=== PATIENT | female | born 1940 ===

== ENCOUNTER 2016-08-04 07:12 | Emergency (ER) | payer MEDICARE, MEDICAID ==
[2016-08-04 07:18] VITALS: BMI 31.4
[2016-08-04 07:20] VITALS: RESP 18; TEMP 97.3
[2016-08-04] MEDS ORDERED: Iohexol 240 (50 ml) ONE (07:54)
--- NOTE | 2016-08-04 08:03 | ED PDOC ---
Arrival/HPI <Josselyn Rubio - Last Filed: 08/04/16 11:35> <Jack Mulligan - Last Filed: 08/04/16 12:54> - General Chief Complaint: Back Pain Time Seen by Provider: 08/04/16 07:21 - History of Present Illness Narrative History of Present Illness (Text): 08/04/16 07:54 76 y/o F w/ PMHx of HTN, PVD, RA, gout presents to the ED c/o L back pain. Pain started 08/02/16 and has been worsening. Pt indicates pain starts around mid/low back and radiates down back of the L leg to toes. Pt admits to chronic back pain but states that this pain is different. Pain improves when lying flat and worsens when standing/walking. When flat, pt reports discomfort in the groin. Pt denies any new/worsening numbness and tingling. Pt had lumbar Xray on as ordered by PMD. Radiology reports severe facet arthropathy @L4-5 and L5- S1. Pt also admits to increased urinary frequency and urgency. Pt denies F/C, N/ V, D/C. (Josselyn Rubio) Past Medical History - Provider Review Nursing Documentation Reviewed: Yes - Infectious Disease Hx of Infectious Diseases: None - Tetanus Immunization Tetanus Immunization: Unknown - Reproductive Menopause: Yes - Cardiac Hx Cardiac Disorders: Yes Hx Hypertension: Yes Hx Peripheral Vascular Disease: Yes (pins and needlees ble) Other/Comment: NEGATIVE STRESS TEST - Pulmonary Hx Respiratory Disorders: No - Neurological Hx Neurological Disorder: No - HEENT Hx HEENT Disorder: Yes (wears glasses) Hx Cataracts: Yes (r and l cataract sx) - Renal Hx Renal Disorder: No - Endocrine/Metabolic Hx Endocrine Disorders: No - Hematological/Oncological Hx Blood Disorders: No - Integumentary Hx Dermatological Disorder: No - Musculoskeletal/Rheumatological Hx Arthritis: Yes (rheumatoid arthritis) Hx Falls: No Hx Gout: Yes (toes) - Gastrointestinal Hx Gastroesophageal Reflux: Yes - Genitourinary/Gynecological Hx Genitourinary Disorders: Yes Hx Urinary Tract Infection: Yes - Psychiatric Hx Anxiety: Yes Hx Bipolar Disorder: No Hx Depression: No Hx Emotional Abuse: No Hx Hallucinations: No Hx Panic Disorder: No Hx Post Traumatic Stress Disorder: No Hx Psychosis: No Hx Physical Abuse: No Hx Schizophrenia: No Hx Sexual Abuse: No Hx Substance Use: No - Surgical History Hx Section: Yes - Anesthesia Hx Anesthesia: No Hx Anesthesia Reactions: No Hx Malignant Hyperthermia: No - Suicidal Assessment Feels Threatened In Home Enviroment: No <Josselyn Rubio - Last Filed: 08/04/16 11:35> Family/Social History - Physician Review Nursing Documentation Reviewed: Yes Family/Social History: No Known Family HX Smoking Status: Never Smoked Hx Alcohol Use: No Hx Substance Use: No Hx Substance Use Treatment: No <Josselyn Rubio - Last Filed: 08/04/16 11:35> Allergies/Home Meds <Josselyn Rubio - Last Filed: 08/04/16 11:35> <aJck Mulligan - Last Filed: 08/04/16 12:54> Allergies/Adverse Reactions: Allergies aspirin Allergy (Verified 08/04/16 07:14) RASH Penicillins Adverse Reaction (Verified 08/04/16 07:15) REDNESS flu vac Allergy (Uncoded 08/04/16 07:15) FATIGUE Home Medications: Home Meds Medication Instructions Recorded Confirmed Atorvastatin Calcium [Lipitor] 10 mg PO DAILY 03/16/12 08/04/16 Nifedipine [Procardia Xl] 90 mg PO DAILY 03/16/12 08/04/16 Allopurinol 300 mg PO DAILY 07/31/14 08/04/16 Furosemide 40 mg PO MWF 07/31/14 08/04/16 Leflunomide [Arava] 20 mg PO DAILY 07/31/14 08/04/16 Omeprazole [Omeprazole] 20 mg PO DAILY 08/04/16 08/04/16 Review of Systems - Physician Review All systems were reviewed & negative as marked: Yes - Review of Systems Constitutional: absent: Fevers Cardiovascular: absent: Chest Pain <Josselyn Rubio - Last Filed: 08/04/16 11:35> Physical Exam Vital Signs Reviewed: Yes Temperature: Afebrile Blood Pressure: Hypertensive Pulse: Tachycardic Respiratory Rate: Normal Appearance: Positive for: Non-Toxic, Uncomfortable Pain Distress: Mild Mental Status: Positive for: Alert and Oriented X 3 - Systems Exam Head: Present: Atraumatic, Normocephalic Pupils: Present: PERRL Extroacular Muscles: Present: EOMI Conjunctiva: Present: Normal Mouth: Present: Moist Mucous Membranes Respiratory/Chest: Present: Clear to Auscultation, Good Air Exchange. No: Respiratory Distress, Accessory Muscle Use Cardiovascular: Present: Regular Rate and Rhythm, Normal S1, S2. No: Murmurs Abdomen: Present: Normal Bowel Sounds. No: Tenderness, Distention, Peritoneal Signs Upper Extremity: Present: Normal Inspection Lower Extremity: Present: Normal Inspection, Other (negative straight-leg test. negative Henry test). No: CALF TENDERNESS Neurological: Present: GCS=15, Speech Normal Skin: Present: Warm, Dry, Normal Color Psychiatric: Present: Alert, Oriented x 3, Normal Affect, Normal Mood <Josselyn Rubio - Last Filed: 08/04/16 11:35> Medical Decision Making - Lab Interpretations I have reviewed the lab results: Yes (Hypokalemia - replaced) - RAD Interpretation Ski Lift Attendant: Radiologist (CT A/P: negative for acute pathology) <Josselyn Rubio - Last Filed: 08/04/16 11:35> - Lab Interpretations I have reviewed the lab results: Yes <Jack Mulligan - Last Filed: 08/04/16 12:54> ED Course and Treatment: 08/04/16 08:05 76 y/o F w/ L back pain - CBC, CMP - Urinalysis - CT A/P r/o nephrolithiasis vs pyelonephritis - Flexeril 10mg - Reassess and dispo 08/04/16 09:08 pt comfortable in bed. 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 Replete Potassium IV and PO Plan to discharge home on Flexeril for sciatica. (Josselyn Rubio) Patient seen and examined with resident. Came up with treatment and disposition plan with resident. The patient is a 76 year old female who comes to the emergency department for evaluation of acute of chronic left mid to lower back pain radiating down the left lower extremity and toes. Additional HPI details as noted by the resident. On physical examination that has no tenderness to the back our lower extremities. Patient has a negative straight leg and henry test. Abdomen/ Pelvis CT and lab work ordered to rule out nephrolithiasis vs. pyelonephritis vs. sciatica. Patient given Flexeril for discomfort. CT shows no evidence of hydonephrosis or nephrolithiasis. Patient was found to have hypokalemia, patient given K-Dur. Finding were discussed with the patient, patient admits to having chronic hypokalemia and states she was prescribed K- dur but she does not take them. On re-evaluation, the patient feels better and is in no acute distress. Results and plan were discussed with the patient, who expresses understanding. Patient in agreement with plan to discharged home. Patient is stable for discharge. Patient was instructed to follow up with physician/clinic in 1-2 days or return if symptoms worsen or new concerning symptoms arise. (Jack Mulligan) - Lab Interpretations Lab Results: 08/04/16 08:30 08/04/16 08:30 Lab Results 08/04/16 08:30: Sodium 145, Potassium 2.9 L* D, Chloride 109 H, Carbon Dioxide 27, Anion Gap 12, BUN 10, Creatinine 0.8, Est GFR ( Amer) > 60, Est GFR ( Non-Af Amer) > 60, Random Glucose 132 H, Calcium 8.6, Total Bilirubin 0.8, AST 24, ALT 27, Alkaline Phosphatase 89, Total Protein 7.8, Albumin 4.0, Globulin 3.8, Albumin/Globulin Ratio 1.1 08/04/16 08:30: WBC 4.5, RBC 3.61, Hgb 11.2 L, Hct 35.3 L, MCV 97.8, MCH 31.0, MCHC 31.7, RDW 13.8, Plt Count 99 L, MPV 11.6 H, Gran % 56.4, Lymph % (Auto) 27.5, Rice % (Auto) 15.0 H, Eos % (Auto) 0.9 L, Baso % (Auto) 0.2, Gran # 2.53, Lymph # 1.2, Rice # 0.7 H, Eos # 0.0, Baso # 0.01 08/04/16 08:00: Urine Color Yellow, Urine Appearance Clear, Urine pH 6.0, Ur Specific Allen 1.020, Urine Protein Trace H, Urine Glucose (UA) Negative, Urine Ketones Negative, Urine Blood Negative, Urine Nitrate Negative, Urine Bilirubin Negative, Urine Urobilinogen 0.2, Ur Leukocyte Esterase Negative, Urine RBC Negative, Urine WBC 0 - 2, Ur Epithelial Cells 3 - 4, Urine Bacteria Trace - RAD Interpretation Radiology Orders: 08/04/16 07:52 ABD & PELVIS W/O PO OR IV CONT [CT] Stat - Medication Orders Current Medication Orders: Discontinued Medications Cyclobenzaprine HCl (Flexeril) 10 mg PO STAT STA Stop: 08/04/16 07:51 Last Admin: 08/04/16 08:03 Dose: 10 mg Potassium Chloride (Potassium Chloride 10 Meq/100 Ml) 10 meq in 100 mls @ 100 mls/hr IVPB Q2H SHREYA Stop: 08/04/16 12:14 Last Admin: 08/04/16 11:40 Dose: Iohexol (Omnipaque 240 (50 Ml)) Confirm Administered Dose 50 ml .ROUTE .STK-MED ONE Stop: 08/04/16 07:55 Last Admin: 08/04/16 08:05 Dose: Potassium Chloride (Potassium Chloride Oral Soln) 40 meq PO STAT STA Stop: 08/04/16 08:56 Last Admin: 08/04/16 09:39 Dose: 40 meq <Josselyn Rubio - Last Filed: 08/04/16 11:35> - PA / SOCCER COMMENTATOR / Resident Statement MD/ has reviewed & agrees with the documentation as recorded. MD/ has examined the patient and agrees with the treatment plan. - Scribe Statement The provider has reviewed the documentation as recorded by the Scribe <Jack Mulligan - Last Filed: 08/04/16 12:54> - Scribe Statement Concetta Leong Provider Scribe Attestation: All medical record entries made by the Scribe were at my direction and personally dictated by me. I have reviewed the chart and agree that the record accurately reflects my personal performance of the history, physical exam, medical decision making, and the department course for this patient. I have also personally directed, reviewed, and agree with the discharge instructions and disposition. (Jack Mulligan) Disposition/Present on Arrival - Present on Arrival Any Indicators Present on Arrival: Yes History of DVT/PE: No History of Uncontrolled Diabetes: No Urinary Catheter: No History of Decub. Ulcer: No History Surgical Site Infection Following: None - Disposition Have Diagnosis and Disposition been Completed?: Yes Disposition Time: 09:00 Patient Plan: Discharge <Josselyn Rubio - Last Filed: 08/04/16 11:35> <Jack Mulligan - Last Filed: 08/04/16 12:54> - Disposition Diagnosis: Back pain Disposition: HOME/ ROUTINE Condition: STABLE Discharge Instructions (ExitCare): Sciatica (ED), Lumbar Radiculopathy (ED), Back Pain (ED) Additional Instructions: Take 2 Potassium 10 mEq PO today at home with Lasix dose. Follow up with primary medical doctor within 1 week Take Flexeril as prescribed Take all home meds as prescribed Return to the ED if new or concerning symptoms. Prescriptions: Cyclobenzaprine [Cyclobenzaprine HCl] 10 mg PO Q8H PRN #20 tab PRN Reason: Muscle Spasm [facility], [Non-Staff] - Follow up with primary
[2016-08-04 08:13] LABS: URINE BILIRUBIN NEGATIVE (NEGATIVE); URINE BLOOD NEGATIVE (NEGATIVE); URINE COLOR YELLOW (YELLOW); URINE GLUCOSE (UA) NEGATIVE (NEGATIVE); URINE KETONE NEGATIVE (NEGATIVE); URINE LEUKOCYTE ESTERASE NEGATIVE Leu/uL (NEGATIVE); URINE PROTEIN TRACE mg/dL (<30 mg/dL); URINE UROBILINOGEN 0.2 E.U./dL (<1 E.U./dL)
[2016-08-04 08:14] LABS: URINE APPEARANCE CLEAR (CLEAR)
[2016-08-04 08:21] LABS: URINE BACTERIA TRACE (NEG); URINE RBC NEGATIVE /hpf (0-2); URINE WBC 0 - 2 /hpf (0-6)
[2016-08-04 08:40] LABS: ADD MANUAL DIFF? NO
[2016-08-04 08:47] LABS: BASO # 0.01 K/mm3 (0.0-2.0); BASO % 0.2 % (0.0-3.0); EOS % 0.9 % (1.5-5.0); GRAN # 2.53 (1.4-6.5); GRAN % 56.4 % (50.0-68.0); HEMATOCRIT 35.3 % (36.0-48.0); LYMPH # 1.2 (1.2-3.4); LYMPH % 27.5 % (22.0-35.0); MEAN CELL VOLUME 97.8 fL (80.0-105.0); MEAN CORPUSCULAR HGB CONC 31.7 g/dl (31.0-37.0); MEAN PLATELET VOLUME 11.6 fl (7.0-11.0); MONO # 0.7 (0.1-0.6); PLATELET COUNT 99 10^3/uL (120.0-450.0); RED CELL DISTRIBUTION WIDTH 13.8 % (11.5-14.5); WHITE BLOOD COUNT 4.5 10^3/ul (4.5-11.0)
[2016-08-04 08:52] LABS: ALB/GLOB RATIO 1.1 (1.1-1.8); ALKALINE PHOSPHATASE 89 U/L (38-133); ALT/SGPT 27 U/L (7-56); AST/SGOT 24 U/L (15-39); BILIRUBIN,TOTAL 0.8 mg/dL (0.2-1.3); BLOOD UREA NITROGEN 10 mg/dL (7-21); CALCIUM 8.6 mg/dL (8.4-10.5); CARBON DIOXIDE 27 mmol/L (21-33); CHLORIDE 109 mmol/L (98-107); GFR AFRICAN-AMERICAN > 60; GLUCOSE,RANDOM 132 mg/dL (70-110); SODIUM 145 mmol/L (132-148); TOTAL PROTEIN 7.8 g/dL (5.8-8.3)
[2016-08-04 08:54] LABS: POTASSIUM 2.9 mmol/L (3.6-5.0)
[2016-08-04] MEDS ORDERED: Potassium Chloride 40 mEq/30 ml LIQ UD PO STA (08:55)
--- NOTE | 2016-08-04 09:01 | CT ---
PROCEDURE: CT Abdomen and Pelvis without intravenous contrast HISTORY: L CVA tenderness COMPARISON: 02/26/2015. TECHNIQUE: Technique. Contrast Dose: Radiation dose: Total exam DLP = 644 mGy-cm. This CT exam was performed using one or more of the following dose reduction techniques: Automated exposure control, adjustment of the mA and/or kV according to patient size, and/or use of iterative reconstruction technique. FINDINGS: LOWER THORAX: Unremarkable. LIVER: Unremarkable. No gross lesion or ductal dilatation. GALLBLADDER AND BILE DUCTS: Unremarkable. PANCREAS: Unremarkable. No gross lesion or ductal dilatation. SPLEEN: Unremarkable. ADRENALS: Unremarkable. No mass. KIDNEYS AND URETERS: Unremarkable. No hydronephrosis. No solid mass. VASCULATURE: Unremarkable. No aortic aneurysm. BOWEL: Colonic diverticulosis. No obstruction. No gross mural thickening. APPENDIX: Unremarkable. Normal appendix. PERITONEUM: Unremarkable. No free fluid. No free air. LYMPH NODES: Unremarkable. No enlarged lymph nodes. BLADDER: Unremarkable. REPRODUCTIVE: Unremarkable. BONES: No acute fracture. OTHER FINDINGS: None. IMPRESSION: No evidence of hydronephrosis or nephrolithiasis.
[2016-08-04 12:11] VITALS: BP 140/70; PULSE 85; O2SAT 98
== END 2016-08-04 11:55 | disposition home or self-care (01) ==
LOC: ED 07:12
DX: M54.9 Dorsalgia, unspecified (principal); I10 Essential (primary) hypertension
CPT/HCPCS: 74176; 80053; 81001; 85025; 96365; 99283; J3480

== ENCOUNTER 2017-04-09 06:15 | Day surgery (SDC) | payer MEDICARE, MEDICAID ==
[2017-04-04 10:27] VITALS: BMI 29.5
[2017-04-09] MEDS ORDERED: Phenylephrine 10 mg/ml Inj ONE (06:52)
[2017-04-09] MEDS ORDERED: Midazolam 2 MG/2 ML VIAL ONE ×2 (06:52→08:20)
[2017-04-09] MEDS ORDERED: Iodixanol 320 MG/ML 100 ML BOTTLE IV ONE (06:53)
[2017-04-09] MEDS ORDERED: Iodixanol 320 MG/ML 200 ML BOTTLE IV ONE (06:53)
[2017-04-09] MEDS ORDERED: Nitroglycerin 50mg in D5W 50 MG/250 ML BOTTLE IV ONE (06:53)
[2017-04-09] MEDS ORDERED: HEPARIN SODIUM/NS 2,000 ML IV ONE (06:53)
[2017-04-09] MEDS ORDERED: Iohexol 350mgl/ml 50 ML ONE (06:53)
[2017-04-09] MEDS ORDERED: Lidocaine 2% Inj (20ml) ONE (06:54)
[2017-04-09] MEDS ORDERED: DiphenhydrAMINE 50 mg/ml Inj ONE (08:16)
[2017-04-09] MEDS ORDERED: Famotidine 20mg/50ml 20 MG/50 ML BAG IVPB ONE (08:18)
[2017-04-09] MEDS ORDERED: Adenosine 90 mg/30mL IV ONE (08:31)
[2017-04-09 08:52] LABS: BASO # 0.01 K/mm3 (0.0-2.0); BASO % 0.3 % (0.0-3.0); EOS % 0.6 % (1.5-5.0); GRAN # 2.13 (1.4-6.5); GRAN % 61.1 % (50.0-68.0); HEMOGLOBIN 10.5 g/dL (12.0-16.0); LYMPH # 0.8 (1.2-3.4); LYMPH % 23.6 % (22.0-35.0); MEAN CELL VOLUME 98.5 fl (80.0-105.0); MEAN CORPUSCULAR HEMOGLOBIN 30.6 pg (25.0-35.0); MEAN CORPUSCULAR HGB CONC 31.1 g/dl (31.0-37.0); MEAN PLATELET VOLUME 12.3 fl (7.0-11.0); MONO # 0.5 (0.1-0.6); MONO % 14.4 % (1.0-6.0); RBC 3.43 10^6/uL (3.5-6.1); WHITE BLOOD COUNT 3.5 10^3/ul (4.5-11.0)
[2017-04-09 09:08] LABS: BLOOD UREA NITROGEN 10 mg/dL (7-21); CALCIUM 9.1 mg/dL (8.4-10.5); GFR AFRICAN-AMERICAN > 60; GFR NON-AFRICAN AMERICAN > 60; HDL CHOLESTEROL 42 mg/dL (29-60)
[2017-04-09] MEDS ORDERED: Potassium Chloride 20 mEq ER Tab PO ONE (09:08)
[2017-04-09 09:13] LABS: LDL CHOLESTEROL 76 mg/dL (0-129)
[2017-04-09] MEDS ORDERED: Sodium Chloride 0.9% 1,000 ML IV SCH (09:15)
[2017-04-09 09:29] LABS: INR 1.06 (0.93-1.08); PARTIAL THROMBOPLASTIN TIME 27.4 Seconds (25.1-36.5); PROTHROMBIN TIME 12.2 SECONDS (9.4-12.5)
[2017-04-09 09:59] LABS: MAGNESIUM 1.8 mg/dL (1.7-2.2)
[2017-04-09] MEDS ORDERED: NIFEdipine 90 mg ER Tab PO SCH (10:00)
[2017-04-09] MEDS ORDERED: Magnesium Sulfate 2 GM in Sodium Chloride 0.9% 100 ML IVPB ONE (10:59)
[2017-04-09] MEDS ORDERED: Potassium Chloride 40 mEq/30 ml LIQ UD PO ONE (11:00)
[2017-04-09 11:30] LABS: HDL CHOLESTEROL 41 mg/dL (29-60)
[2017-04-09] MEDS ORDERED: Potassium Chloride 10 mEq ER Tab PO PRN (11:34)
[2017-04-09 11:41] LABS: LDL CHOLESTEROL 78 mg/dL (0-129)
[2017-04-09] MEDS ORDERED: IRBESARTAN 300 MG PO SCH (11:45)
[2017-04-09] MEDS ORDERED: LEFLUNOMIDE 20 MG PO SCH (11:45)
[2017-04-09] MEDS: Pantoprazole 40 mg EC Tab PO SCH (17:10)
[2017-04-09] MEDS ORDERED: Potassium Chloride 10 mEq ER Tab PO SCH (18:00)
--- NOTE | 2017-04-09 18:44 | CARDCATH ---
PROCEDURE DATE: 04/09/2017 CARDIAC CATHETERIZATION AND PTCA HISTORY: The patient is a 76-year-old woman with multiple cardiac risk factors including hypertension and hypercholesterolemia, who presents with chest pain, fatigue, and an abnormal stress test. Cardiac catheterization was recommended. The right femoral artery was cannulated with a 6-Macedonian sheath. There were no complications. I performed moderate sedation which included the presence of an independent trained observer who assisted in monitoring the patient's level of consciousness and physiologic status. After administration of Versed and fentanyl, my intra-service time was 30 minutes. A left heart catheterization with coronary arteriography, left ventriculogram, FFR, as well as PTCA and stent of an LAD were performed. The right femoral artery was cannulated with a 6-Macedonian sheath. The findings on catheterization revealed a left ventricle that was mildly hypokinetic with an estimated ejection fraction of 45%. Her coronary anatomy revealed a right dominant circulation. The RCA was a large vessel and was free of significant disease. The left main artery revealed mild calcification without critical lesions. The circumflex artery and obtuse marginal branches revealed intimal irregularities without critical lesions. The LAD revealed a long 70% stenosis extending from the proximal to the mid LAD. The diagonal vessels revealed intimal irregularities without significant stenoses. An FFR was performed in the LAD, which revealed an FFR of 0.83. The patient was started on intravenous Angiomax on the fluoroscopic guide, the guiding catheter was placed in the ostium of the left main artery. The overall 0.14 wire was used to cross the LAD lesion. A 2.75 x 23 mm drug-eluting stent was placed and deployed in the LAD lesion at 16 ounces of pressure. Repeat coronary arteriography revealed resolution of the stenoses with an excellent result with no residual stenosis and EBONI III flow. The patient tolerated the procedure well. Angio-Seal was used to close the femoral artery site. In summary, the procedure was successful with PTCA and stent of proximal/mid LAD with a drug-eluting stent. The length of the stent was a 23 mm x 2.75 stent. The FFR was 0.03 pre-angioplasty Cardiac catheterization revealed single-vessel disease of the LAD. There was mild LV hypokinesis of the LV. Given these findings, the patient will need to remain on Plavix indefinitely and undergo a strict cardiac risk reduction program. THE PATIENT HAS AN ALLERGY TO ASPIRIN. Javid Alvares MD
[2017-04-09 21:07] LABS: BLOOD UREA NITROGEN 13 mg/dL (7-21); GFR AFRICAN-AMERICAN > 60; GFR NON-AFRICAN AMERICAN > 60; MAGNESIUM 2.2 mg/dL (1.7-2.2)
--- NOTE | 2017-04-09 21:17 | CARD ---
APPROVED REPORT EKG Measurement Heart [id number] <Conclusion> Normal sinus rhythm Minimal voltage criteria for LVH, may be normal variant Prolonged QT Abnormal ECG
--- NOTE | 2017-04-09 21:33 | CARD ---
APPROVED REPORT EKG Measurement Heart [id number] <Conclusion> Normal sinus rhythm Possible Left atrial enlargement Left ventricular hypertrophy Abnormal ECG
[2017-04-09 23:45] VITALS: O2SAT 95
--- NOTE | 2017-04-10 00:51 | HP ---
DATE OF EXAM: 04/09/2017 HISTORY OF PRESENT ILLNESS: The patient is admitted post angioplasty and cardiac catheterization by Dr. Javid Alvares in room 265, bed 2. The patient is seen lying in the bed in room 265, bed 2, with the patient's family at bedside. The patient underwent angioplasty and cardiac catheterization today. The patient's chief complaints on an ongoing basis is complains of chest pressure, for which the patient has been followed by the control panel builder, underwent cardiac diagnostic testing which led to the patient is having a cardiac catheterization and angioplasty. CODE STATUS: Full code. LIVING WILL ADVANCE DIRECTIVE: None. ALLERGIES: ASPIRIN, PENICILLIN AND FLU VACCINE. HEIGHT: 5 feet 1 inch. WEIGHT: 156. BMI: 29. PAST MEDICAL AND SURGICAL HISTORY: History of angina, history of hyperuricemia, history of hypokalemia, history of hypertension, history of dyslipidemia, history of gastroesophageal reflux. Past medical history also significant for thrombocytopenia, for which the patient has been seen by Dr. Rajput and had extensive workup according to the patient. History of peripheral vascular disease, history of cataract surgery, history of rheumatoid arthritis, history of gout, history of anxiety, history of section. The patient's past medical history is significant for coronary artery disease with multiple visits to cardiac rehab. History of ovarian cyst, history of pelvic pain, history of prediabetes, history of urinary tract infection, history of abnormal stress test with reversible anterolateral apical ischemic defect with fixed inferolateral defect, history of diffuse LV hypokinesis with ejection fraction of 43%, history of diverticulosis of the colon, history of left ovarian cysts, history of degenerative joint disease of the knees, history of questionable degenerative joint disease, history of left ventricular ejection fraction of 40%, history of concentric left ventricular hypertrophy, history of mildly impaired left ventricular systolic function, history of moderately dilated left atrium, history of calcified aortic valve, history of moderate mitral regurgitation, history of tricuspid regurgitation, history of moderate pulmonary arterial hypertension with right ventricular systolic pressure of 50 mmHg, history of possible ischemic cardiomyopathy, 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 HOME MEDICATIONS: Allopurinol 100 mg every 7 days, K-Dur 10 mEq p.r.n., Arava 20 mg daily, Avapro 300 mg daily, Lasix 10 mg daily p.r.n., Lipitor 10 mg daily, Prilosec 20 mg daily, Procardia XL 90 mg daily, Tylenol 650 mg p.o. at bedtime. SOCIAL HISTORY: Denies smoking, alcohol, drug use or communicable transmissible disease. FAMILY HISTORY: Not available. OCCUPATIONAL HISTORY: Elderly 76-year-old female, not working. PHYSICAL EXAMINATION GENERAL: The patient is seen lying in the bed post cardiac catheterization. VITAL SIGNS: T-max 98.3. Telemetry shows sinus rhythm, heart rate 100, 80, 88, 97. Blood pressure is 168/92, 157/85, 152/71. Respirations 20. O2 sat is not documented. HEAD: Normocephalic, atraumatic. EENT: Shows pinkish pale conjunctivae. Anicteric sclerae. No oropharyngeal lesion. No neck rigidity. No jugular venous distention. CHEST: Kyphosis. LUNGS: Shows no audible rales, crackles or wheezing. CARDIOVASCULAR: S1, S2, tachycardic rhythm. Positive systolic murmur at the left sternal border, right second intercostal space, left second intercostal space. ABDOMEN: Soft. Positive bowel sounds. No hepatosplenomegaly appreciated. GENITALIA: Female. Positive dressing of the right groin post cardiac catheterization. VASCULAR: Palpable pulses. MUSCULOSKELETAL: Shows a body mass index of 29.5. NEUROLOGIC: The patient is alert, awake, oriented x3. Cranial nerves II-XII limited. Gait examinations could not be tested as the patient is lying in the bed post cardiac catheterization angioplasty. DIAGNOSTICS: On 04/09; WBC 3.5, hemoglobin and hematocrit 10.5 and 33.8, platelet 92,000. PT/PTT 12.2 and 27.4. Sodium 149, potassium 2.6, chloride 111, CO2 of 23; anion gap 11, 10, 18; BUN 10, creatinine 0.8, GFR greater than 60, glucose 122 , phosphorus 2.9, magnesium 1.8, cholesterol 140, triglyceride 119, LDL 76, HDL 72. Blood type is B+. The patient underwent cardiac catheterization and angioplasty and stent placement. EKG shows sinus rhythm, Q-wave in III. LVH pattern. IMPRESSION AND PLAN: A 76-year-old [place] female with history of hypertension, dyslipidemia, history of rheumatoid arthritis, history of thrombocytopenia, history of coronary artery disease, history of possible ischemic cardiomyopathy, admitted after angioplasty and stent placement. Impression: 1. Coronary artery disease. 2. Status post angioplasty and stent placement of the mid left anterior descending artery. 3. Unstable angina. 4. Hypertension. 5. Tachycardia, probably secondary to Procardia. 6. Prediabetes. 7. Pancytopenia, leukopenia, anemia, thrombocytopenia. 8. Hypernatremia. 9. Hypokalemia. 10. Hyperglycemia. 11. O+ blood type. 12. History of hyperuricemia, hypertension, history of dyslipidemia, history of hypercholesteremia, history of gastroesophageal reflux. PLAN: At this time, the patient has been ordered admission to telemetry by Dr. Javid Alvares. The patient has been ordered repeat CMP, magnesium, phosphorus, CBC. The patient has been supplemented with potassium and magnesium. Hematology/Oncology consultation with Dr. Rajput has been requested for evaluation of thrombocytopenia. The patient has been started on most of her home medications. Procardia at this time is held because of tachycardia. The patient is resumed on Avapro 300 mg daily. The patient will be put on K-Dur 20 mEq twice a day while she is in the hospital with repeat chemistry ordered for the morning. The patient is ordered her Arava 20 mg daily, Lipitor 40 mg daily. The patient is started on Lopressor 25 mg twice a day, magnesium sulfate 2 g rider ordered. The patient is ordered Plavix 75 daily. The patient has been given p.o. and IV potassium riders to correct hypokalemia. The patient is on Protonix 40 mg daily. The patient is on Tylenol 650 at bedtime, Zestril 10 mg daily. Allopurinol 100 mg every 7 days. The patient's Avapro will be discontinued at present because the patient is already on Zestril which is ordered by Dr. Javid Alvares. Repeat EKG ordered. Heart healthy diet ordered. Bed rest ordered. The patient has been ordered uric acid level. Hemoglobin A1c ordered. At present, the patient will be monitored and hemoglobin A1c ordered. At present, the patient is seen in room 265, bed 2. The patient and the patient's family has been updated and explained about the patient's condition, diagnosis, treatment plan, management plan, need for further diagnostic therapeutic intervention ordered which she acknowledged understand. All questions concerned answered. Dictated and electronically signed, not read. Evan Connor MD [facility] # [id number]
[2017-04-10] MEDS: Pantoprazole 40 mg EC Tab PO SCH (05:02)
[2017-04-10 06:48] LABS: BASO # 0.01 K/mm3 (0.0-2.0); BASO % 0.2 % (0.0-3.0); GRAN # 2.83 (1.4-6.5); GRAN % 62.9 % (50.0-68.0); LYMPH # 0.8 (1.2-3.4); LYMPH % 18.2 % (22.0-35.0); MEAN CELL VOLUME 99.1 fl (80.0-105.0); MEAN CORPUSCULAR HEMOGLOBIN 30.8 pg (25.0-35.0); MEAN CORPUSCULAR HGB CONC 31.1 g/dl (31.0-37.0); MONO # 0.8 (0.1-0.6); MONO % 18.7 % (1.0-6.0); RBC 3.25 10^6/uL (3.5-6.1); RED CELL DISTRIBUTION WIDTH 14.1 % (11.5-14.5); WHITE BLOOD COUNT 4.5 10^3/ul (4.5-11.0)
[2017-04-10 07:24] LABS: ALB/GLOB RATIO 1.1 (1.1-1.8); ALBUMIN 3.5 g/dL (3.0-4.8); ALT/SGPT 21 U/L (7-56); AST/SGOT 25 U/L (14-36); BLOOD UREA NITROGEN 17 mg/dL (7-21); GFR AFRICAN-AMERICAN > 60; GFR NON-AFRICAN AMERICAN > 60; MAGNESIUM 2.3 mg/dL (1.7-2.2)
[2017-04-10] MEDS ORDERED: Potassium Phosphate 15 MMOLE in Dextrose 5% In Water 250 ML IVPB ONE (07:27)
[2017-04-10] MEDS ORDERED: Potassium Chloride 20 mEq ER Tab PO ONE (07:28)
[2017-04-10 11:58] VITALS: BP 153/86; PULSE 80; RESP 18; TEMP 97.5
--- NOTE | 2017-04-10 17:12 | PN ---
DATE: 04/10/2017 SUBJECTIVE: The patient is chest pain free. PHYSICAL EXAMINATION: VITAL SIGNS: Stable, heart rate is stable. NECK: Negative JVD. LUNGS: Without rales. HEART: S1, S2. EXTREMITIES: Without edema. The right groin site is stable. LABORATORY DATA: The platelet count is 105, hemoglobin is 10.0. EKG shows no changes. IMPRESSION: 1. Stable post percutaneous transluminal coronary angioplasty and stent. 2. Coronary artery disease. 3. Hypertension. 4. Hypercholesterolemia. 5. Chronic thrombocytopenia with platelet count of approximately 100. Given these findings, THE PATIENT IS ALLERGIC TO ASPIRIN and will be discharged only on Plavix as well as statin therapy. Javid Alvares MD
--- NOTE | 2017-04-11 02:41 | CARD ---
APPROVED REPORT EKG Measurement Heart [id number] <Conclusion> Normal sinus rhythm Possible Left atrial enlargement Borderline ECG
--- NOTE | 2017-04-11 07:34 | DS ---
HISTORY: The patient is seen in room 265, bed #2. The patient states that she has a headache and does not feel like going home today. The patient was examined. The patient's vital signs and diagnostic data reviewed. PHYSICAL EXAMINATION: VITAL SIGNS: T-max 98.1, telemetry shows sinus rhythm, heart rate 84, 86, 87, 93, blood pressure in the last 24 hours 164/82, 153/65, 174/104, 165/89, 185/103, 170/88, 180/90, p.r.n. clonidine ordered, respiration 20, O2 sat 95%. HEENT: Normocephalic, atraumatic. HEENT examination shows pinkish pale conjunctivae. Anicteric sclerae. No oropharyngeal lesion. No neck rigidity. No visible jugular venous distention. CHEST: Kyphosis. LUNGS: Shows no rales, crackles or wheezing. CARDIOVASCULAR: Shows S1, S2, regular rhythm. Questionable soft systolic murmur, left sternal border, right second intercostal space, left second intercostal space. ABDOMEN: Soft. Positive bowel sound. No hepatosplenomegaly noted. No guarding. No rigidity. No rebound tenderness. GENITALIA: Female. RECTAL: Deferred. EXTREMITIES: Right groin examination is intact. No hematoma. Pulses are palpable of the lower extremity. VASCULAR: Palpable pulses. MUSCULOSKELETAL: Shows a body mass index of 27. NEUROLOGIC: The patient is alert, awake, oriented x3, is able to sit up from the lying position without assistance. Motor strength is 5/5 in upper and lower extremity. DIAGNOSTICS: On April 10; WBC of 4.5, hemoglobin and hematocrit 10 and 32.2, platelets 105,000. Sodium 145, potassium 3.5, chloride 113, CO2 21, anion gap 14, BUN 17, creatinine 0.9, GFR greater than 60, glucose 100, calcium 9.0, phosphorus 2.3, magnesium 2.3. LFTs are normal. FINAL IMPRESSION AND DISCHARGE DIAGNOSES: 1. Coronary artery disease. 2. Status post cardiac catheterization and angioplasty and stent placement. 3. Status post successful angioplasty and stent placement of the proximal and mid left anterior descending with drug-eluting stent. 4. Left ventricular ejection fraction of 45% with mild hypokinesis. 5. Left circumflex artery and obtuse marginal branches with intimal irregularities. 6. Long 70% stenosis extending from proximal to the mid left anterior descending artery. 7. Internal irregularities of the diagonal coronary artery. 8. Mild left ventricular hypokinesis with left ventricle ejection fraction of 45%. 9. Hypertension. 10. Sinus tachycardia. 11. Hypertensive cardiovascular disease. 12. Leukopenia, anemia, thrombocytopenia, pancytopenia. 13. Hypokalemia. 14. Hyperglycemia. 15. Transient hypernatremia. 16. History of hyperuricemia. 17. History of rheumatoid arthritis. 18. History of dyslipidemia. PLAN: At that this time, the patient has been ordered [id number] for supplementation of potassium and phosphorus. The patient is to be discharged home today after Cardiology clearance. Discharge followup with Dr. Rutherford, the patient's primary care physician, follow up with Dr. Alvares and Dr. Rajput within 1 week. Discharge medications as per updated ambulatory orders. The patient was extensively explained about her diagnoses and test results during this hospitalization. Time spent in the entire discharge process, more than 45 minutes. Dictated and electronically signed, not read. Evan Connor MD
== END 2017-04-10 16:10 | disposition home or self-care (01) ==
LOC: CATH 06:15 → 2RNO 09:21 → CATH 04-10 16:10
PROVIDERS: ATTEND Internal Medicine
DX: I25.110 Atherosclerotic heart disease of native coronary artery with unstable angina pectoris (principal); I10 Essential (primary) hypertension; D61.818 Other pancytopenia; E87.0 Hyperosmolality and hypernatremia; E78.00 Pure hypercholesterolemia, unspecified; E87.6 Hypokalemia; R73.9 Hyperglycemia, unspecified; M06.9 Rheumatoid arthritis, unspecified; I73.9 Peripheral vascular disease, unspecified; K21.9 Gastro-esophageal reflux disease without esophagitis
CPT/HCPCS: 36415; 80048; 80053; 80061; 83036; 83735 ×2; 84100 ×2; 84550; 85025 ×2; 85610; 85730; 86850; 86900; 93005; 93458; 99152; 99153; C1760; C1769 ×2; C1874; C1887 ×2; C2629; C9600; J0153; J0360 ×2; J0583; J1200; J1644; J2250; J2930; J3010; J3475; J3480 ×2; J7030; J7040; J7060; Q9967 ×2

== ENCOUNTER 2017-09-18 11:46 | Emergency (ER) | payer MEDICARE, MEDICAID ==
[2017-09-18 11:51] VITALS: BMI 30.6
[2017-09-18 11:58] VITALS: RESP 18
--- NOTE | 2017-09-18 12:26 | ED PDOC ---
Arrival/HPI - General Chief Complaint: Dizziness/Lightheaded Time Seen by Provider: 09/18/17 12:06 Historian: Patient - History of Present Illness Narrative History of Present Illness (Text): 09/18/17 12:20 77 year old female, whose PMH includes hypertension, cardiac catheterization with stents, and GERD, who presents to the emergency department complaining of not feeling well s/p taking her first dose of prescribed medication since last night. Patient reports her insurance no longer prescribing Diovan and was replaced with Hytrin 5mg before bed. Patient reports not feeling good at around 03:00 AM and was nauseous. Patient denies chest pain, shortness of breath, dizziness, headache, vomiting, diarrhea, fever, cough, or other complaints. PMD: Dr. Dontae Rutherford [place] Time/Duration: 4-6 hours Symptom Onset: Sudden Symptom Course: Unchanged Activities at Onset: Rest Context: Home Past Medical History - Provider Review Nursing Documentation Reviewed: Yes - Infectious Disease Hx of Infectious Diseases: None - Tetanus Immunization Tetanus Immunization: Unknown - Cardiac Hx Hypertension: Yes Hx Pacemaker: No Other/Comment: Cardiac cath with stents - Pulmonary Hx Respiratory Disorders: No - Neurological Hx Paralysis: No - HEENT Hx HEENT Disorder: Yes (wears glasses) Hx Cataracts: Yes (r and l cataract sx) - Renal Hx Renal Disorder: No - Endocrine/Metabolic Hx Endocrine Disorders: No - Hematological/Oncological Hx Blood Transfusions: No - Integumentary Hx Dermatological Disorder: No - Musculoskeletal/Rheumatological Hx Musculoskeletal Disorders: Yes Hx Arthritis: Yes - Gastrointestinal Hx Gastroesophageal Reflux: Yes - Genitourinary/Gynecological Hx Genitourinary Disorders: Yes Hx Urinary Tract Infection: Yes - Psychiatric Hx Emotional Abuse: No Hx Physical Abuse: No Hx Substance Use: No - Surgical History Other/Comment: cardiac cath - Anesthesia Hx Anesthesia: Yes Hx Anesthesia Reactions: No Hx Malignant Hyperthermia: No - Suicidal Assessment Feels Threatened In Home Enviroment: No Family/Social History - Physician Review Nursing Documentation Reviewed: Yes Family/Social History: Unknown Family HX Smoking Status: Never Smoked Hx Alcohol Use: No Hx Substance Use: No Hx Substance Use Treatment: No Allergies/Home Meds Allergies/Adverse Reactions: Allergies aspirin Allergy (Verified 08/04/16 07:14) RASH Penicillins Adverse Reaction (Verified 08/04/16 07:15) REDNESS flu vac Allergy (Uncoded 08/04/16 07:15) FATIGUE Home Medications: Home Meds Medication Instructions Recorded Confirmed Irbesartan [Avapro] 150 mg PO DAILY 03/29/17 09/18/17 Acetaminophen [Tylenol] 650 mg PO HS 04/04/17 09/18/17 Allopurinol [Zyloprim] 300 mg PO DAILY 04/04/17 09/18/17 Atorvastatin [Lipitor] 10 mg PO DIN 09/18/17 09/18/17 Esomeprazole Magnesium [Nexium] 1 tab PO DAILY 09/18/17 09/18/17 Metoprolol Succinate XL [Toprol XL] 1 tab PO DAILY 09/18/17 09/18/17 NIFEdipine ER [Procardia XL] 1 tab PO DAILY 09/18/17 09/18/17 Terazosin [Hytrin] 1 tab PO HS 09/18/17 09/18/17 Review of Systems - Review of Systems Constitutional: absent: Fevers ENT: absent: Sinus Congestion Respiratory: absent: SOB Cardiovascular: absent: Chest Pain Gastrointestinal: Nausea. absent: Abdominal Pain, Diarrhea Genitourinary Female: absent: Dysuria Musculoskeletal: absent: Back Pain Skin: absent: Rash Neurological: absent: Headache Endocrine: absent: Diaphoresis Physical Exam Vital Signs Reviewed: Yes Vital Signs Temp Pulse Resp BP Pulse Ox 09/18/17 13:57 97.9 F 89 18 110/50 L 96 09/18/17 12:34 93 H 179/89 H 09/18/17 11:58 97.8 F 94 H 18 198/77 H 97 Temperature: Afebrile Blood Pressure: Hypertensive Pulse: Tachycardic Respiratory Rate: Normal Appearance: Positive for: Well-Appearing, Non-Toxic, Comfortable Pain Distress: None Mental Status: Positive for: Alert and Oriented X 3 - Systems Exam Head: Present: Atraumatic, Normocephalic Pupils: Present: PERRL Extroacular Muscles: Present: EOMI Conjunctiva: Present: Normal Respiratory/Chest: Present: Clear to Auscultation, Good Air Exchange. No: Respiratory Distress, Accessory Muscle Use, Wheezes, Decreased Breath Sounds, Rales, Retracting, Rhonchi Cardiovascular: Present: Regular Rate and Rhythm, Normal S1, S2. No: Murmurs Abdomen: Present: Normal Bowel Sounds. No: Tenderness, Distention, Peritoneal Signs, Rebound, Guarding Neurological: Present: GCS=15, CN II-XII Intact, Speech Normal Skin: Present: Warm, Dry, Normal Color. No: Rashes Psychiatric: Present: Alert, Oriented x 3, Normal Insight, Normal Concentration Medical Decision Making ED Course and Treatment: 09/18/17 Impression: 77 year old female with unremarkable physical exam complaining of not feeling well with nausea since last night s/p taking first medication dose. Plan: -- CT head -- EKG -- Chest X-ray -- Labs -- Zestril -- Reassess and disposition Progress Notes: 09/18/17 12:[address] Rutherford, who is aware of plan and requested to make sure lab work and CT scan results are good for patient d/c. Dr. Rutherford also requested for patient to stop taking Hytrin and replace it with Lisinopril 5mg. 09/18/17 12:40 Chest X-ray: Creator : Blaire Bray COMPARISON: 02/26/2015 FINDINGS: LUNGS: No active pulmonary disease. PLEURA: No significant pleural effusion identified, no pneumothorax apparent. CARDIOVASCULAR: Cardiomegaly -similar. No gross pulmonary venous congestion appreciated.Aortic knob -calcified as before. OSSEOUS STRUCTURES: No significant abnormalities. VISUALIZED UPPER ABDOMEN: Normal. OTHER FINDINGS: None. IMPRESSION: No interval pathology noted. Other findings -as above. 09/18/17 EKG: Ordered, reviewed, and independently interpreted the EKG. Rate : 91 BPM Rhythm : NSR Interpretation : No ST-segment elevations or depressions, no T-wave inversions, normal intervals. - Lab Interpretations Lab Results: 09/18/17 13:47 09/18/17 13:47 Lab Results 09/18/17 13:47: Sodium 144, Potassium 4.3, Chloride 111 H, Carbon Dioxide 21, Anion Gap 17, BUN 16, Creatinine 0.7, Est GFR ( Amer) > 60, Est GFR (Non- Af Amer) > 60, Random Glucose 117 H, Calcium 9.3, Total Bilirubin 0.8, AST 25, ALT 22, Alkaline Phosphatase 75, Lactate Dehydrogenase 454, Total Creatine Kinase 59, Troponin I < 0.01, Total Protein 7.9, Albumin 4.3, Globulin 3.5, Albumin/Globulin Ratio 1.2 09/18/17 13:47: PT 11.8, INR 1.03 09/18/17 13:47: WBC 4.8, RBC 3.39 L, Hgb 10.7 L, Hct 32.9 L, MCV 97.1, MCH 31.6 , MCHC 32.5, RDW 12.9, Plt Count 94 L, MPV 11.6 H, Gran % 61.3, Lymph % (Auto) 21.0 L, [place] % (Auto) 15.8 H, Eos % (Auto) 1.9, Baso % (Auto) 0.0, Gran # 2.92, Lymph # (Auto) 1.0 L, [place] # (Auto) 0.8 H, Eos # (Auto) 0.1, Baso # (Auto) 0.00 I have reviewed the lab results: Yes - RAD Interpretation Radiology Orders: 09/18/17 12:16 HEAD W/O CONTRAST [CT] Stat CHEST PORTABLE [RAD] Stat Hand I Blocker: Radiologist - Medication Orders Current Medication Orders: Discontinued Medications Lisinopril (Zestril) 5 mg PO STAT STA Stop: 09/18/17 12:17 Last Admin: 09/18/17 12:34 Dose: 5 mg MAR Pulse and Blood Pressure Document 09/18/17 12:34 [place] (Rec: 09/18/17 12:36 [place] [id number]) Pulse Pulse Rate (60-90) 93 Blood Pressure Blood Pressure (100/60-150/90) 179/89 - Scribe Statement The provider has reviewed the documentation as recorded by the Jadon Medrano Provider Scribe Attestation: All medical record entries made by the Jadon were at my direction and personally dictated by me. I have reviewed the chart and agree that the record accurately reflects my personal performance of the history, physical exam, medical decision making, and the department course for this patient. I have also personally directed, reviewed, and agree with the discharge instructions and disposition. Disposition/Present on Arrival - Present on Arrival Any Indicators Present on Arrival: No History of DVT/PE: No History of Uncontrolled Diabetes: No Urinary Catheter: No History of Decub. Ulcer: No History Surgical Site Infection Following: None - Disposition Have Diagnosis and Disposition been Completed?: Yes Diagnosis: Hypertension Disposition: HOME/ ROUTINE Disposition Time: 14:54 Patient Plan: Discharge Condition: GOOD Discharge Instructions (ExitCare): High Blood Pressure (DC) Additional Instructions: Stop the Hytrin ( the one he gave you to replace the diovan.) Start the Lisonopril 5 mg tomorrow. Return to us if any problems See your Dr Cerda Next Week Forms: [employer] (Japanese)
--- NOTE | 2017-09-18 12:40 | RAD ---
Date of service: 09/18/2017 HISTORY: wEAK AND dIZZY COMPARISON: 02/26/2015 FINDINGS: LUNGS: No active pulmonary disease. PLEURA: No significant pleural effusion identified, no pneumothorax apparent. CARDIOVASCULAR: Cardiomegaly -similar. No gross pulmonary venous congestion appreciated. Aortic knob -calcified as before. OSSEOUS STRUCTURES: No significant abnormalities. VISUALIZED UPPER ABDOMEN: Normal. OTHER FINDINGS: None. IMPRESSION: No interval pathology noted. Other findings -as above.
[2017-09-18 14:00] VITALS: TEMP 97.9
[2017-09-18 14:01] LABS: EOS # 0.1 (0.0-0.7); EOS % 1.9 % (1.5-5.0); GRAN # 2.92 (1.4-6.5); GRAN % 61.3 % (50.0-68.0); HEMOGLOBIN 10.7 g/dL (12.0-16.0); MEAN CELL VOLUME 97.1 fl (80.0-105.0); MEAN CORPUSCULAR HEMOGLOBIN 31.6 pg (25.0-35.0); MEAN CORPUSCULAR HGB CONC 32.5 g/dl (31.0-37.0); MEAN PLATELET VOLUME 11.6 fl (7.0-11.0); MONO # 0.8 (0.1-0.6); MONO % 15.8 % (1.0-6.0); RBC 3.39 10^6/uL (3.5-6.1); RED CELL DISTRIBUTION WIDTH 12.9 % (11.5-14.5); WHITE BLOOD COUNT 4.8 10^3/ul (4.5-11.0)
[2017-09-18 14:03] LABS: INR 1.03; PROTHROMBIN TIME 11.8 SECONDS (9.4-12.5)
[2017-09-18 14:08] LABS: ALB/GLOB RATIO 1.2 (1.1-1.8); ALBUMIN 4.3 g/dL (3.0-4.8); ALT/SGPT 22 U/L (7-56); AST/SGOT 25 U/L (14-36); BLOOD UREA NITROGEN 16 mg/dL (7-21); CALCIUM 9.3 mg/dL (8.4-10.5); GFR AFRICAN-AMERICAN > 60; GFR NON-AFRICAN AMERICAN > 60
--- NOTE | 2017-09-18 14:15 | CARD ---
APPROVED REPORT Date of service: 09/18/2017 EKG Measurement Heart [id number] [id number] <Conclusion> Normal sinus rhythm Normal ECG
[2017-09-18 14:20] LABS: TROPONIN I < 0.01 ng/mL
--- NOTE | 2017-09-18 14:40 | CT ---
Date of service: 09/18/2017 PROCEDURE: CT HEAD WITHOUT CONTRAST. HISTORY: dIZZY COMPARISON: 02/26/2015 TECHNIQUE: Axial computed tomography images were obtained through the head/brain without intravenous contrast. Radiation dose: Total exam DLP = 988 mGy-cm. This CT exam was performed using one or more of the following dose reduction techniques: Automated exposure control, adjustment of the mA and/or kV according to patient size, and/or use of iterative reconstruction technique. FINDINGS: HEMORRHAGE: No intracranial hemorrhage. BRAIN: No mass effect or edema. No atrophy or chronic microvascular ischemic changes. VENTRICLES: Unremarkable. No hydrocephalus. CALVARIUM: Unremarkable. PARANASAL SINUSES: Unremarkable as visualized. No significant inflammatory changes. MASTOID AIR CELLS: Unremarkable as visualized. No inflammatory changes. OTHER FINDINGS: None. IMPRESSION: No acute findings
[2017-09-18 15:14] VITALS: PULSE 82
[2017-09-18 15:18] VITALS: BP 118/61; O2SAT 99
== END 2017-09-18 15:14 | disposition home or self-care (01) ==
LOC: ED 11:46
DX: I10 Essential (primary) hypertension (principal); K21.9 Gastro-esophageal reflux disease without esophagitis; Z95.5 Presence of coronary angioplasty implant and graft

== ENCOUNTER 2018-06-26 05:40 | Outpatient (CLI) | payer MEDICARE, MEDICAID | END 2018-06-26 05:41 | disposition home or self-care (01) | LOC: CARDIO 05:40 | DX: I25.10 Atherosclerotic heart disease of native coronary artery without angina pectoris (principal) ==